=== PATIENT | male | born 1995 | race American Indian/Alaskan Native ===

== ENCOUNTER 2022-01-23 15:18 | Emergency (ER) | payer SELFPAY ==
[~2022-01-23] VITALS: Ht 165.1 cm; Wt 64.5 kg
[2022-01-23 15:47] VITALS: TEMP 98.8
[2022-01-23 18:25] VITALS: BP 115/78; PULSE 76
== END 2022-01-23 18:25 | disposition home or self-care (01) ==
LOC: COL.ER 15:18
DX: S61.213A Laceration without foreign body of left middle finger without damage to nail, initial encounter (principal); S61.211A Laceration without foreign body of left index finger without damage to nail, initial encounter; W29.8XXA Contact with other powered hand tools and household machinery, initial encounter; Y92.59 Other trade areas as the place of occurrence of the external cause; Y99.0 Civilian activity done for income or pay